=== PATIENT | male | born 1935 | race Caucasian/White ===

== ENCOUNTER 2018-12-23 12:58 | Outpatient (CLI) | payer MEDICARE, BC ==
--- NOTE | 2018-12-23 14:29 | RAD ---
EXAM: CHEST TWO VIEWS: History: Dyspnea. Comparison: 09-28-12 FINDINGS: Mild increased linear and interstitial markings and bilateral pleural thickening. No confluent pneumo leonel, overt edema, or other acute process. IMPRESSION: Mild chronic changes. No acute intrathoracic disease. Atherosclerosis of the aorta. POS: [facility]
== END 2018-12-23 12:59 | disposition home or self-care (01) ==
LOC: RAD 12:58
PROVIDERS: ATTEND Internal Medicine Critical Care Medicine
DX: R06.00 Dyspnea, unspecified (principal); I70.0 Atherosclerosis of aorta
CPT/HCPCS: 71046

== ENCOUNTER 2019-02-28 11:47 | Outpatient (CLI) | payer MEDICARE, BC ==
--- NOTE | 2019-02-28 12:15 | ULT ---
BILATERAL RENAL ULTRASOUND: Date: 02/28/19 HISTORY: UTI. FINDINGS: The right kidney measures 12.7 cm in length and the left kidney measures 12.1 cm in length. No focal mass or hydronephrosis is seen on either side. Cortical echogenicity and thickness is normal. The uri nary bladder is normal. IMPRESSION: Normal exam. POS: [facility]
== END 2019-02-28 11:48 | disposition home or self-care (01) ==
LOC: BICULT 11:47
PROVIDERS: ATTEND Urology
DX: N39.0 Urinary tract infection, site not specified (principal)
CPT/HCPCS: 76770

== ENCOUNTER 2019-04-27 12:27 | Outpatient (CLI) | payer MEDICARE, BC ==
[2019-04-27 14:01] LABS: Bilirubin Negative (Negative); Blood, Urine Negative (Negative); Clarity CLEAR (Clear); Glucose, Urine (Dipstick) Negative (Negative); Leukocyte Negative (Negative); Nitrite Negative (Negative); Protein, Urine (Dipstick) Negative (Neg-Trace); Specific Gravity, Urine 1.017 (1.002-1.036); pH, Urine 5.5 (5.0-9.0)
[2019-04-27 14:03] LABS: Bacteria/HPF None Seen HPF (None Seen); Hemoglobin 13.8 g/dL (14.0-18.0); Hyaline Casts/LPF 0-3 HYALINE CAST LPF (0-3 Hyaline); Mean Corpuscular HGB CONC 34.7 g/dL (32.0-36.0); Mean Corpuscular Hemoglobin 31.6 pg (27.0-31.0); Mean Corpuscular Volume 91.3 fL (78.0-98.0); Mean Platelet Volume 8.8 fL (7.4-10.4); Pathc Cast-AUWi Flag 0.13 (0-2.49); Platelet Count 239 thou/uL (130-400); RBC Distribution Width 12.6 % (11.5-14.5); Red Blood Cell (RBC) Count 4.38 mill/uL (4.70-6.10); Squamous Epithelial None Seen HPF (0-3); WBC/HPF 0-3 HPF (0-3); White Blood Cell (WBC) Count 8.6 thou/uL (4.8-10.8)
[2019-04-27 14:04] LABS: Urine Culture Reflex No No
[2019-04-27 14:07] LABS: INR-International Normal Ratio 1.1; PTT 29.5 SEC (22.9-36.1); Prothrombin Time 14.2 SEC (12.0-14.7)
[2019-04-27 14:27] LABS: Anion Gap 14 mmol/L (10-20); BUN (Urea Nitrogen) 22 mg/dL (8.4-25.7); Calc. Creatinine Clearance 0 mL/min (70-130); Calcium 9.4 mg/dL (7.8-10.44); Carbon Dioxide 24 mmol/L (23-31); Chloride 105 mmol/L (98-107); Estimated GFR-MDRD 71; Glucose 92 mg/dL (83-110); Potassium 4.3 mmol/L (3.5-5.1); Sodium 139 mmol/L (136-145)
--- NOTE | 2019-04-29 21:17 | EKG ---
Test Reason : Blood Pressure : / mmHG Vent. Rate : 067 BPM Atrial Rate : 067 BPM P-R Int : 170 ms QRS Dur : 116 ms QT Int : 430 ms P-R-T Axes : 048 -27 -12 degrees QTc Int : 454 ms Normal sinus rhythm with sinus arrhythmia Left ventricular hypertrophy with QRS widening Abnormal ECG When compared with ECG of 28-SEP-2012 09:57, Premature supraventricular complexes are no longer Present Confirmed by Rudy LOVE ([id number]) on 04/29/2019 9:16:47 PM Referred By: SAWYER Confirmed By:Rudy LOVE
== END 2019-04-27 12:28 | disposition home or self-care (01) ==
LOC: LABBT 12:27
PROVIDERS: ATTEND Urology
DX: Z01.818 Encounter for other preprocedural examination (principal); N40.0 Benign prostatic hyperplasia without lower urinary tract symptoms; N39.41 Urge incontinence
CPT/HCPCS: 80048; 81001; 85027; 85610; 85730; 87086; 93005; 93010

== ENCOUNTER 2019-05-05 06:33 | Observation (INO) | payer MEDICARE, BC ==
[2019-04-27 12:45] VITALS: BMI 34.9
[2019-05-05] MEDS ORDERED: Levofloxacin 500 mg/D5W 100 ml Premix Bag ONE (07:56)
[2019-05-05] MEDS ORDERED: Fentanyl 100 MCG/2 ML VIAL ONE ×2 (09:38→11:32)
[2019-05-05] MEDS ORDERED: Midazolam HCl 2 mg/2 ml Vial ONE (09:38)
[2019-05-05] MEDS ORDERED: B & O ONE (10:58)
[2019-05-05] MEDS ORDERED: Bisacodyl 10 MG SUPP PR PRN (11:07)
[2019-05-05] MEDS ORDERED: hydrALAZINE 20 MG/ML VIAL SLOW IVP PRN (11:07)
[2019-05-05] MEDS ORDERED: Oxybutynin 5 MG TAB PO PRN (11:07)
[2019-05-05] MEDS ORDERED: Ondansetron PF 4 MG/2 ML Vial IVP PRN (11:07)
[2019-05-05] MEDS ORDERED: Mag-Al 1200 mg/1200 mg/30 ML UDCUP PO PRN (11:07)
[2019-05-05] MEDS ORDERED: Phenazopyridine HCl 97.5 MG TABLET PO PRN (11:07)
[2019-05-05] MEDS ORDERED: Hyoscyamine Sulfate SL 0.125 mg Tablet SL PRN (11:07)
[2019-05-05] MEDS ORDERED: Acetaminophen 500 MG TAB PO PRN (11:07)
[2019-05-05] MEDS ORDERED: diphenhydrAMINE 25 MG CAP PO PRN (11:07)
[2019-05-05] MEDS ORDERED: traMADol HCl 50 MG TAB PO PRN (11:10)
[2019-05-05] MEDS ORDERED: Promethazine HCl 25 MG/ML VIAL SLOW IVP PRN (11:17)
[2019-05-05] MEDS ORDERED: Ondansetron HCl/PF 4 MG/2 ML Vial IVP PRN (11:17)
[2019-05-05] MEDS ORDERED: Promethazine HCl 25 MG/ML VIAL IM PRN (11:17)
--- NOTE | 2019-05-05 11:27 | OP ---
DATE OF PROCEDURE: 05/05/2019 SERVICE: Urology. PREOPERATIVE DIAGNOSIS: Benign prostatic hypertrophy. POSTOPERATIVE DIAGNOSIS: Benign prostatic hypertrophy. PROCEDURE PERFORMED: Transurethral vaporization of the prostate. INDICATION FOR PROCEDURE: Mr. Kellogg is an 83-year-old white male, who presented with significant urinary complaints. He is currently on medical therapy, but wishes to come off and be able to urinate better. He has undergone volume studies and cystoscopy, which demonstrates obstruction with a very large prostate. Risks and benefits of surgery were discussed, and he has agreed to proceed forward. DESCRIPTION OF PROCEDURE: After identification of armband and verification of consent, the patient was brought back to the operating room, where he underwent general anesthesia with an LMA. He was then placed in the dorsal lithotomy position and prepped and draped in usual sterile fashion. After appropriate time-out, a 26-Omani resectoscope sheath with visual obturator was placed with ease through the urethra into the bladder. Both ureters were identified very close to the bladder neck, but not excessively close to the point, where there would be a risk injury. The visual obturator was switched out for the wide bipolar plasma button electrode. Vaporization was then carried out initially on the lateral lobes and then at the median lobe. There was no intravesical median lobe, but just hypertrophy of the posterior aspect of the prostate. Circumferential vaporization was carried out from the bladder neck all the way to the verumontanum until we were close to but not through the prostatic capsule. On inspection into the bladder neck, the ureters were identified and a TUIBN was performed with the vaporization electrode to relax the bladder neck and further open up the prostate. Intervening tissue was then vaporized away. Meticulous hemostasis was then performed. Upon completion, the prostatic fossa was wide opened. Everything was dry and there was no apparent bleeding. The ureters were unharmed in orthotopic location. The bladder was irrigated out and then left full, with the resectoscope removed. A 22-Omani three-way Pate catheter was then placed with ease into the bladder and 30 mL of sterile water placed in the balloon. CBI was initiated. The patient was then taken out of lithotomy, awakened, and taken to PACU for recovery in stable condition. B and O suppository was placed in his rectum before awakening. COMPLICATIONS: None. ESTIMATED BLOOD LOSS: Minimal. RETAINED TUBES AND DRAINS: A 22-Omani three-way Pate catheter on continuous bladder irrigation. SPECIMENS: None. DISPOSITION: The patient will be kept in the hospital overnight for monitoring the hematuria. We will then perform a void trial, and he will be discharged home with followup on an outpatient basis. Job ID: [id number]
[2019-05-05] MEDS ORDERED: Morphine 2 MG/ML SYRINGE SLOW IVP PRN (12:51)
[2019-05-05] MEDS ORDERED: Succinylcholine Chloride 20 MG/ML 10 ml SYRINGE FS ONE (16:04)
[2019-05-05] MEDS ORDERED: Rocuronium Bromide 10 MG/ML (10ML VIAL) ONE (16:04)
[2019-05-05] MEDS ORDERED: Dexamethasone 20 MG/5 ML VIAL ONE (16:04)
[2019-05-05] MEDS ORDERED: Ondansetron PF 4 MG/2 ML Vial ONE (16:04)
[2019-05-05] MEDS ORDERED: ePHEDrine 50 MG/ML VIAL ONE (16:04)
[2019-05-05] MEDS ORDERED: Glycopyrrolate 0.2 MG/ML 5 ML SYRINGE ONE (16:04)
[2019-05-05] MEDS ORDERED: PROPOFOL 200 MG/20 ML VIAL ONE (16:04)
[2019-05-05] MEDS ORDERED: Atorvastatin Calcium 40 MG TAB PO SCH (21:00)
[2019-05-05] MEDS: Docusate 100 MG CAP PO SCH (21:06)
[2019-05-06 05:06] LABS: #Eosinphils 0.1 thou/uL (0.0-0.7); #Monocytes 1.2 thou/uL (0.11-0.59); #Neutrophils 9.7 thou/uL (1.40-6.50); %Eosinophils 0.5 % (0.0-10.0); %Lymphocytes 15.3 % (21.0-51.0); %Monocytes 9.1 % (0.0-10.0); Hemoglobin 13.6 g/dL (14.0-18.0); Mean Corpuscular HGB CONC 33.1 g/dL (32.0-36.0); Mean Corpuscular Hemoglobin 30.6 pg (27.0-31.0); Mean Corpuscular Volume 92.5 fL (78.0-98.0); Mean Platelet Volume 8.6 fL (7.4-10.4); Platelet Count 249 thou/uL (130-400); RBC Distribution Width 12.6 % (11.5-14.5); Red Blood Cell (RBC) Count 4.43 mill/uL (4.70-6.10); White Blood Cell (WBC) Count 12.9 thou/uL (4.8-10.8)
[2019-05-06 05:23] LABS: Anion Gap 11 mmol/L (10-20); BUN (Urea Nitrogen) 19 mg/dL (8.4-25.7); Calc. Creatinine Clearance 105 mL/min (70-130); Calcium 9.7 mg/dL (7.8-10.44); Carbon Dioxide 28 mmol/L (23-31); Chloride 104 mmol/L (98-107); Estimated GFR-MDRD 79; Glucose 117 mg/dL (83-110); Potassium 4.3 mmol/L (3.5-5.1); Sodium 139 mmol/L (136-145)
[2019-05-06] MEDS: Docusate 100 MG CAP PO SCH (09:08)
[2019-05-06 09:46] VITALS: TEMP 98.3
[2019-05-06 11:42] VITALS: BP 154/72
--- NOTE | 2019-05-08 13:24 | PRG ---
DATE OF SERVICE: 05/06/2019 SUBJECTIVE: The patient had a good night. No complaints. No bladder spasms, fevers, or issues with his catheter. No chest pain or shortness of breath. OBJECTIVE: VITAL SIGNS: Temperature 98.3, pulse 85, respirations 14, blood pressure 153/69, and saturation 95% on room air. GENERAL: No apparent distress, communicating, and alert. CARDIOVASCULAR: Regular rate and rhythm. ABDOMEN: Soft, nontender, and nondistended. : Pate catheter in place with slightly translucent red urine. No clots. EXTREMITIES: No clubbing, cyanosis, or edema. LABORATORY EVALUATION: The full set of labs are in the [facility] system, which I have reviewed. Of note, white count is 12.9 with hemoglobin of 13.6. Creatinine is 0.92. ASSESSMENT AND PLAN: An 83-year-old white male with BPH, status post transurethral vaporization of the prostate, postop day 1, recovering well. Plan a void trial, and if the patient is able to urinate properly with no difficulty and minimal hematuria, he can go home. I have gone over all the discharge instructions and counseling, and he will follow up with me in 1 to 2 weeks for a postop check. Job ID: [id number]
== END 2019-05-06 14:28 | disposition home or self-care (01) ==
LOC: SDC 06:33 → SJJU 11:53
PROVIDERS: ADMIT Urology; ATTEND Urology
PROC: 0V507ZZ Destruction of Prostate, Via Natural or Artificial Opening (ICD-10-PCS; principal; 2019-05-05)
DX: N40.1 Benign prostatic hyperplasia with lower urinary tract symptoms (principal); N39.41 Urge incontinence; E78.00 Pure hypercholesterolemia, unspecified; I25.10 Atherosclerotic heart disease of native coronary artery without angina pectoris; K21.9 Gastro-esophageal reflux disease without esophagitis; K27.9 Peptic ulcer, site unspecified, unspecified as acute or chronic, without hemorrhage or perforation; G47.33 Obstructive sleep apnea (adult) (pediatric); Z79.01 Long term (current) use of anticoagulants; Z79.82 Long term (current) use of aspirin; Z79.899 Other long term (current) drug therapy; Z87.891 Personal history of nicotine dependence; Z99.89 Dependence on other enabling machines and devices
CPT/HCPCS: 52648; 80048; 85025; 96365; G0378; 36415; J1100; J1956; J2250; J2405; J2704; J3010; J3490; Q0163

== ENCOUNTER 2022-04-04 16:23 | Inpatient (IN) | payer MEDICARE, BC ==
[2022-04-04 16:52] VITALS: BMI 32.6
[2022-04-04] MEDS ORDERED: Acetaminophen 500 MG TAB PO PRN (17:51)
[2022-04-04] MEDS ORDERED: Enoxaparin Sodium 120 MG/0.8 ML SYRINGE SC SCH (18:00)
[2022-04-04] MEDS: Diltiazem HCl 125 MG in Premix Bag 1 BAG IVPB SCH (18:36)
[2022-04-04] MEDS: Atorvastatin Calcium 40 MG TAB PO SCH (19:40)
[2022-04-05 04:57] LABS: #Eosinphils 0.2 thou/uL (0.0-0.7); #Lymphocytes 2.7 thou/uL (1.20-3.40); #Monocytes 1.5 thou/uL (0.11-0.59); #Neutrophils 10.1 thou/uL (1.40-6.50); %Basophils 0.3 % (0.0-1.0); %Eosinophils 1.3 % (0.0-10.0); %Lymphocytes 18.7 % (21.0-51.0); %Monocytes 10.5 % (0.0-10.0); %Neutrophils 69.2 % (42.0-75.0); Hemoglobin 14.3 g/dL (14.0-18.0); Mean Corpuscular HGB CONC 33.6 g/dL (32.0-36.0); Mean Corpuscular Volume 95.2 fL (78.0-98.0); Mean Platelet Volume 8.1 fL (7.4-10.4); Platelet Count 269 thou/uL (130-400); RBC Distribution Width 13.1 % (11.5-14.5); Red Blood Cell (RBC) Count 4.49 mill/uL (4.70-6.10); White Blood Cell (WBC) Count 14.5 thou/uL (4.8-10.8)
[2022-04-05 05:23] LABS: Anion Gap 15 mmol/L (10-20); BUN (Urea Nitrogen) 20 mg/dL (8.4-25.7); Calc. Creatinine Clearance 80 mL/min (70-130); Calcium 8.9 mg/dL (7.8-10.44); Carbon Dioxide 21 mmol/L (23-31); Chloride 101 mmol/L (98-107); Glucose 119 mg/dL (83-110); Potassium 4.3 mmol/L (3.5-5.1); Sodium 133 mmol/L (136-145)
[2022-04-05] MEDS: Diltiazem HCl 125 MG in Premix Bag 1 BAG IVPB SCH ×3 (06:12→18:05)
[2022-04-05] MEDS ORDERED: Albuterol Sulfate 2.5 mg/3 ml Neb NEB PRN (07:49)
[2022-04-05] MEDS: Docusate 100 MG CAP PO SCH ×2 (09:16→19:51)
[2022-04-05] MEDS: Apixaban 5 MG TAB PO SCH ×2 (10:46→19:51)
[2022-04-05] MEDS: Aspirin Chewable 81 MG TAB PO SCH (10:46)
[2022-04-05 13:41] LABS: Bilirubin Negative (Negative); Blood, Urine Negative (Negative); Clarity Clear (Clear); Glucose, Urine (Dipstick) Normal (Negative); Ketone, Urine Negative (Negative); Leukocyte 75 Leu/uL (Negative); Nitrite Negative (Negative); Protein, Urine (Dipstick) Negative (Neg-Trace); RBC/HPF 0-3 HPF (0-3); Specific Gravity, Urine 1.015 (1.002-1.036); Squamous Epithelial None Seen HPF (0-3); Urobilinogen Normal mg/dL (Less than 2)
[2022-04-05 13:49] LABS: Bacteria/HPF None Seen HPF (None Seen); WBC/HPF 0-3 HPF (0-3)
[2022-04-05 13:50] LABS: Urine Culture Reflex Yes Yes
[2022-04-05] MEDS ORDERED: Diltiazem 125 MG in Sodium Chloride 0.9% 100 ML IVPB SCH (18:00)
[2022-04-05] MEDS: Acetaminophen 500 MG TAB PO SCH (19:50)
[2022-04-05] MEDS: diphenhydrAMINE 25 MG CAP PO SCH (19:51)
[2022-04-05] MEDS: Atorvastatin Calcium 40 MG TAB PO SCH (19:51)
[2022-04-06 05:37] LABS: Anion Gap 11 mmol/L (10-20); BUN (Urea Nitrogen) 15 mg/dL (8.4-25.7); Calc. Creatinine Clearance 84 mL/min (70-130); Calcium 8.5 mg/dL (7.8-10.44); Carbon Dioxide 25 mmol/L (23-31); Chloride 102 mmol/L (98-107); Glucose 112 mg/dL (83-110); Potassium 4.3 mmol/L (3.5-5.1); Sodium 134 mmol/L (136-145)
[2022-04-06] MEDS: Dronedarone HCl 400 MG TAB PO SCH ×2 (08:19→17:09)
[2022-04-06] MEDS: Aspirin Chewable 81 MG TAB PO SCH (08:19)
[2022-04-06] MEDS: Apixaban 5 MG TAB PO SCH ×2 (08:19→20:19)
[2022-04-06] MEDS: Docusate 100 MG CAP PO SCH ×2 (08:19→20:20)
[2022-04-06] MEDS ORDERED: Cepastat Lozenges 1 LOZ PO SCH (12:15)
[2022-04-06] MEDS: Cepastat Lozenges 1 LOZ PO PRN ×2 (17:09→20:54)
[2022-04-06] MEDS: guaiFENesin ER 600 MG TAB PO PRN (17:09)
[2022-04-06] MEDS: Acetaminophen 500 MG TAB PO SCH (20:18)
[2022-04-06] MEDS: Atorvastatin Calcium 40 MG TAB PO SCH (20:19)
[2022-04-06] MEDS: diphenhydrAMINE 25 MG CAP PO SCH (20:20)
[2022-04-07] MEDS: Cepastat Lozenges 1 LOZ PO PRN ×2 (03:42→12:35)
[2022-04-07 05:00] LABS: Hemoglobin 13.5 g/dL (14.0-18.0); Mean Corpuscular HGB CONC 33.5 g/dL (32.0-36.0); Mean Corpuscular Hemoglobin 32.1 pg (27.0-31.0); Mean Corpuscular Volume 95.9 fL (78.0-98.0); Mean Platelet Volume 8.1 fL (7.4-10.4); Platelet Count 263 thou/uL (130-400); RBC Distribution Width 13.2 % (11.5-14.5); Red Blood Cell (RBC) Count 4.21 mill/uL (4.70-6.10); White Blood Cell (WBC) Count 7.9 thou/uL (4.8-10.8)
[2022-04-07 05:19] LABS: Anion Gap 11 mmol/L (10-20); BUN (Urea Nitrogen) 16 mg/dL (8.4-25.7); Calc. Creatinine Clearance 88 mL/min (70-130); Calcium 8.4 mg/dL (7.8-10.44); Carbon Dioxide 24 mmol/L (23-31); Chloride 105 mmol/L (98-107); Glucose 115 mg/dL (83-110); Sodium 136 mmol/L (136-145)
[2022-04-07] MEDS: Docusate 100 MG CAP PO SCH ×2 (09:56→19:55)
[2022-04-07] MEDS: Dronedarone HCl 400 MG TAB PO SCH ×2 (09:57→18:24)
[2022-04-07] MEDS: Aspirin Chewable 81 MG TAB PO SCH (09:57)
[2022-04-07] MEDS: Apixaban 5 MG TAB PO SCH ×3 (09:57→19:55)
[2022-04-07] MEDS: guaiFENesin ER 600 MG TAB PO PRN (12:35)
[2022-04-07] MEDS ORDERED: PROPOFOL 20 ML ONE (17:01)
[2022-04-07] MEDS ORDERED: Lidocaine 1% PF 5 ML VIAL ONE ×2 (17:01→17:12)
[2022-04-07] MEDS ORDERED: PROPOFOL 200 MG/20 ML VIAL ONE (17:12)
[2022-04-07] MEDS: diphenhydrAMINE 25 MG CAP PO SCH (19:55)
[2022-04-07] MEDS: Atorvastatin Calcium 40 MG TAB PO SCH (19:56)
[2022-04-07] MEDS: Acetaminophen 500 MG TAB PO SCH (19:56)
[2022-04-08] MEDS: Cepastat Lozenges 1 LOZ PO PRN ×2 (00:12→10:22)
[2022-04-08] MEDS: guaiFENesin ER 600 MG TAB PO PRN (00:12)
[2022-04-08 08:45] VITALS: BP 156/69; TEMP 98
[2022-04-08] MEDS: Docusate 100 MG CAP PO SCH (08:53)
[2022-04-08] MEDS: Aspirin Chewable 81 MG TAB PO SCH (08:53)
[2022-04-08] MEDS: Apixaban 5 MG TAB PO SCH (08:53)
[2022-04-08] MEDS: Dronedarone HCl 400 MG TAB PO SCH (08:53)
[2022-04-08] MEDS ORDERED: Doxycycline 100 MG CAP PO SCH (09:00)
== END 2022-04-08 11:47 | disposition home or self-care (01) | DRG 309 ==
LOC: 2SW 16:23
PROVIDERS: ADMIT Internal Medicine; ATTEND Internal Medicine
PROC: B24BZZ4 Ultrasonography of Heart with Aorta, Transesophageal (ICD-10-PCS; principal; 2022-04-08)
PROC: 5A2204Z Restoration of Cardiac Rhythm, Single (ICD-10-PCS; 2022-04-08)
DX: I48.92 Unspecified atrial flutter (principal); N13.8 Other obstructive and reflux uropathy; I48.0 Paroxysmal atrial fibrillation; I10 Essential (primary) hypertension; J40 Bronchitis, not specified as acute or chronic; M19.90 Unspecified osteoarthritis, unspecified site; K21.9 Gastro-esophageal reflux disease without esophagitis; E66.09 Other obesity due to excess calories; N40.1 Benign prostatic hyperplasia with lower urinary tract symptoms; E78.5 Hyperlipidemia, unspecified; G47.33 Obstructive sleep apnea (adult) (pediatric); E78.00 Pure hypercholesterolemia, unspecified; I08.3 Combined rheumatic disorders of mitral, aortic and tricuspid valves; I25.10 Atherosclerotic heart disease of native coronary artery without angina pectoris; I49.9 Cardiac arrhythmia, unspecified; Z96.649 Presence of unspecified artificial hip joint; Z96.659 Presence of unspecified artificial knee joint; Z79.899 Other long term (current) drug therapy; Z79.82 Long term (current) use of aspirin; Z68.33 Body mass index [BMI] 33.0-33.9, adult; Z79.01 Long term (current) use of anticoagulants; Z79.2 Long term (current) use of antibiotics; Z83.3 Family history of diabetes mellitus; Z82.49 Family history of ischemic heart disease and other diseases of the circulatory system
CPT/HCPCS: 36415; 80048; 81001; 84145; 84443; 85025; 85027; 87086; 92960; 93005; 93010; 93306; 94760; J1650; J1956; J2704

== ENCOUNTER 2022-07-18 10:38 | Inpatient (IN) | payer MEDICARE, BC ==
[2022-07-18 14:52] VITALS: BMI 34.7
[2022-07-18] MEDS ORDERED: Acetaminophen 325 MG TAB PO PRN (15:49)
[2022-07-18] MEDS ORDERED: Acetaminophen 650 MG Suppository PR PRN (15:49)
[2022-07-18] MEDS ORDERED: Ondansetron PF 4 MG/2 ML Vial IVP PRN (15:49)
[2022-07-18] MEDS ORDERED: Ondansetron ODT 4 MG TAB PO PRN (15:49)
[2022-07-18] MEDS ORDERED: Diltiazem HCl 125 MG in Premix Bag 1 BAG IVPB SCH (16:45)
[2022-07-18] MEDS ORDERED: Furosemide 40 MG/4 ML VIAL SLOW IVP SCH (17:00)
[2022-07-18] MEDS ORDERED: Albuterol Sulfate 2.5 mg/3 ml Neb NEB PRN (17:03)
[2022-07-18] MEDS: Dronedarone HCl 400 MG TAB PO SCH (17:34)
[2022-07-18] MEDS ORDERED: Diltiazem HCl SR 60 mg Capsule PO SCH (18:00)
[2022-07-18 18:14] LABS: Magnesium 1.8 mg/dL (1.6-2.6)
[2022-07-18] MEDS: Atorvastatin Calcium 40 MG TAB PO SCH (20:48)
[2022-07-18] MEDS: Enoxaparin Sodium 120 MG/0.8 ML SYRINGE SC SCH (20:49)
[2022-07-18] MEDS: guaiFENesin/Codeine 200 mg/20 mg 10 ml Cup PO PRN (20:49)
[2022-07-18] MEDS: Docusate 100 MG CAP PO SCH (20:49)
[2022-07-19] MEDS: guaiFENesin/Codeine 200 mg/20 mg 10 ml Cup PO PRN ×2 (02:26→12:45)
[2022-07-19 04:49] LABS: #Eosinphils 0.1 thou/uL (0.0-0.7); #Lymphocytes 1.2 thou/uL (1.20-3.40); #Monocytes 0.8 thou/uL (0.11-0.59); #Neutrophils 4.7 thou/uL (1.40-6.50); %Basophils 0.1 % (0.0-1.0); %Eosinophils 1.8 % (0.0-10.0); %Lymphocytes 17.4 % (21.0-51.0); %Monocytes 11.2 % (0.0-10.0); %Neutrophils 69.6 % (42.0-75.0); Hemoglobin 12.7 g/dL (14.0-18.0); Mean Corpuscular HGB CONC 34.8 g/dL (32.0-36.0); Mean Corpuscular Volume 94.9 fL (78.0-98.0); Mean Platelet Volume 8.4 fL (7.4-10.4); Platelet Count 185 thou/uL (130-400); RBC Distribution Width 13.1 % (11.5-14.5); Red Blood Cell (RBC) Count 3.83 mill/uL (4.70-6.10); White Blood Cell (WBC) Count 6.8 thou/uL (4.8-10.8)
[2022-07-19 05:10] LABS: Anion Gap 14 mmol/L (10-20); BUN (Urea Nitrogen) 14 mg/dL (8.4-25.7); Calc. Creatinine Clearance 84 mL/min (70-130); Calcium 8.4 mg/dL (7.8-10.44); Carbon Dioxide 24 mmol/L (23-31); Chloride 99 mmol/L (98-107); Estimated GFR 65; Glucose 110 mg/dL (83-110); Potassium 3.8 mmol/L (3.5-5.1); Sodium 133 mmol/L (136-145)
[2022-07-19] MEDS: Benzonatate 100 MG CAP PO PRN ×2 (05:14→20:57)
[2022-07-19] MEDS ORDERED: Albuterol 200 PUFF (6.7GM INHALER) INH PRN (05:27)
[2022-07-19] MEDS ORDERED: Magnesium 2 GM/50 ML(in water) 2 GM in Premix Bag 1 BAG IVPB SCH (08:30)
[2022-07-19] MEDS: Docusate 100 MG CAP PO SCH ×2 (09:50→20:56)
[2022-07-19] MEDS: Dronedarone HCl 400 MG TAB PO SCH (09:50)
[2022-07-19] MEDS: Enoxaparin Sodium 120 MG/0.8 ML SYRINGE SC SCH (09:50)
[2022-07-19] MEDS: Cepastat Lozenges 1 LOZ PO PRN (15:02)
[2022-07-19] MEDS: Apixaban 5 MG TAB PO SCH (20:56)
[2022-07-19] MEDS: Atorvastatin Calcium 40 MG TAB PO SCH (20:56)
[2022-07-20] MEDS: guaiFENesin/Codeine 200 mg/20 mg 10 ml Cup PO PRN ×3 (03:10→21:17)
[2022-07-20 04:38] LABS: #Eosinphils 0.2 thou/uL (0.0-0.7); #Lymphocytes 1.1 thou/uL (1.20-3.40); #Monocytes 0.7 thou/uL (0.11-0.59); #Neutrophils 3.4 thou/uL (1.40-6.50); %Basophils 0.4 % (0.0-1.0); %Eosinophils 3.2 % (0.0-10.0); %Lymphocytes 20.6 % (21.0-51.0); %Monocytes 12.7 % (0.0-10.0); %Neutrophils 63.1 % (42.0-75.0); Hemoglobin 13.4 g/dL (14.0-18.0); Mean Corpuscular HGB CONC 34.2 g/dL (32.0-36.0); Mean Corpuscular Hemoglobin 32.5 pg (27.0-31.0); Mean Corpuscular Volume 95.3 fL (78.0-98.0); Mean Platelet Volume 8.6 fL (7.4-10.4); Platelet Count 192 thou/uL (130-400); RBC Distribution Width 13.1 % (11.5-14.5); Red Blood Cell (RBC) Count 4.12 mill/uL (4.70-6.10); White Blood Cell (WBC) Count 5.5 thou/uL (4.8-10.8)
[2022-07-20 05:00] LABS: Anion Gap 15 mmol/L (10-20); BUN (Urea Nitrogen) 12 mg/dL (8.4-25.7); Calc. Creatinine Clearance 96 mL/min (70-130); Calcium 8.3 mg/dL (7.8-10.44); Carbon Dioxide 23 mmol/L (23-31); Chloride 102 mmol/L (98-107); Estimated GFR 76; Glucose 128 mg/dL (83-110); Sodium 136 mmol/L (136-145)
[2022-07-20] MEDS: Docusate 100 MG CAP PO SCH ×2 (09:44→21:17)
[2022-07-20] MEDS: Apixaban 5 MG TAB PO SCH ×2 (09:45→21:17)
[2022-07-20] MEDS: Benzonatate 100 MG CAP PO PRN (10:56)
[2022-07-20] MEDS: Atorvastatin Calcium 40 MG TAB PO SCH (21:17)
[2022-07-21 04:57] LABS: #Eosinphils 0.2 thou/uL (0.0-0.7); #Lymphocytes 1.9 thou/uL (1.20-3.40); #Monocytes 0.7 thou/uL (0.11-0.59); #Neutrophils 3.4 thou/uL (1.40-6.50); %Eosinophils 3.7 % (0.0-10.0); %Lymphocytes 30.5 % (21.0-51.0); %Monocytes 10.9 % (0.0-10.0); %Neutrophils 54.9 % (42.0-75.0); Hemoglobin 13.5 g/dL (14.0-18.0); Mean Corpuscular HGB CONC 33.8 g/dL (32.0-36.0); Mean Corpuscular Hemoglobin 32.5 pg (27.0-31.0); Mean Corpuscular Volume 96.1 fL (78.0-98.0); Platelet Count 213 thou/uL (130-400); Red Blood Cell (RBC) Count 4.16 mill/uL (4.70-6.10); White Blood Cell (WBC) Count 6.3 thou/uL (4.8-10.8)
[2022-07-21 05:15] LABS: Anion Gap 12 mmol/L (10-20); BUN (Urea Nitrogen) 13 mg/dL (8.4-25.7); Calc. Creatinine Clearance 94 mL/min (70-130); Calcium 8.6 mg/dL (7.8-10.44); Carbon Dioxide 25 mmol/L (23-31); Chloride 102 mmol/L (98-107); Estimated GFR 74; Glucose 113 mg/dL (83-110); Potassium 4.2 mmol/L (3.5-5.1); Sodium 135 mmol/L (136-145)
[2022-07-21] MEDS: guaiFENesin/Codeine 200 mg/20 mg 10 ml Cup PO PRN (08:29)
[2022-07-21] MEDS: Apixaban 5 MG TAB PO SCH ×2 (08:29→22:01)
[2022-07-21] MEDS: Docusate 100 MG CAP PO SCH ×2 (08:29→22:01)
[2022-07-21] MEDS: Cepastat Lozenges 1 LOZ PO PRN (09:45)
[2022-07-21] MEDS ORDERED: guaiFENesin ER 600 MG TAB PO SCH (13:45)
[2022-07-21] MEDS: Atorvastatin Calcium 40 MG TAB PO SCH (22:00)
[2022-07-21] MEDS: guaiFENesin ER 600 MG TAB PO SCH (22:01)
[2022-07-22 04:49] LABS: #Eosinphils 0.2 thou/uL (0.0-0.7); #Lymphocytes 1.9 thou/uL (1.20-3.40); #Monocytes 0.7 thou/uL (0.11-0.59); %Basophils 0.2 % (0.0-1.0); %Eosinophils 3.4 % (0.0-10.0); %Lymphocytes 27.3 % (21.0-51.0); %Neutrophils 59.2 % (42.0-75.0); Hemoglobin 13.3 g/dL (14.0-18.0); Mean Corpuscular HGB CONC 34.3 g/dL (32.0-36.0); Mean Corpuscular Hemoglobin 32.7 pg (27.0-31.0); Mean Corpuscular Volume 95.4 fL (78.0-98.0); Mean Platelet Volume 8.4 fL (7.4-10.4); Platelet Count 234 thou/uL (130-400); Red Blood Cell (RBC) Count 4.07 mill/uL (4.70-6.10); White Blood Cell (WBC) Count 6.8 thou/uL (4.8-10.8)
[2022-07-22 05:09] LABS: Anion Gap 13 mmol/L (10-20); BUN (Urea Nitrogen) 14 mg/dL (8.4-25.7); Calc. Creatinine Clearance 94 mL/min (70-130); Calcium 8.4 mg/dL (7.8-10.44); Carbon Dioxide 24 mmol/L (23-31); Chloride 104 mmol/L (98-107); Estimated GFR 74; Glucose 114 mg/dL (83-110); Potassium 4.1 mmol/L (3.5-5.1); Sodium 137 mmol/L (136-145)
[2022-07-22] MEDS: Aspirin Chewable 81 MG TAB PO SCH (09:14)
[2022-07-22] MEDS: Docusate 100 MG CAP PO SCH ×2 (09:14→21:30)
[2022-07-22] MEDS: Furosemide 20 MG TAB PO SCH (09:14)
[2022-07-22] MEDS: Apixaban 5 MG TAB PO SCH ×2 (09:14→21:30)
[2022-07-22] MEDS: guaiFENesin ER 600 MG TAB PO SCH ×2 (09:14→21:30)
[2022-07-22] MEDS: Cepastat Lozenges 1 LOZ PO PRN (11:12)
[2022-07-22] MEDS: Dronedarone HCl 400 MG TAB PO SCH (16:43)
[2022-07-22] MEDS: Atorvastatin Calcium 40 MG TAB PO SCH (21:30)
[2022-07-23 04:48] LABS: #Eosinphils 0.3 thou/uL (0.0-0.7); #Lymphocytes 2.3 thou/uL (1.20-3.40); #Monocytes 0.6 thou/uL (0.11-0.59); %Basophils 0.4 % (0.0-1.0); %Eosinophils 3.6 % (0.0-10.0); %Lymphocytes 31.8 % (21.0-51.0); %Neutrophils 56.2 % (42.0-75.0); Hemoglobin 13.3 g/dL (14.0-18.0); Mean Corpuscular HGB CONC 34.7 g/dL (32.0-36.0); Mean Corpuscular Hemoglobin 33.4 pg (27.0-31.0); Mean Corpuscular Volume 96.4 fL (78.0-98.0); Mean Platelet Volume 8.5 fL (7.4-10.4); Platelet Count 233 thou/uL (130-400); Red Blood Cell (RBC) Count 3.97 mill/uL (4.70-6.10); White Blood Cell (WBC) Count 7.2 thou/uL (4.8-10.8)
[2022-07-23 05:16] LABS: Anion Gap 11 mmol/L (10-20); BUN (Urea Nitrogen) 15 mg/dL (8.4-25.7); Calc. Creatinine Clearance 74 mL/min (70-130); Calcium 8.6 mg/dL (7.8-10.44); Carbon Dioxide 28 mmol/L (23-31); Chloride 102 mmol/L (98-107); Estimated GFR 56; Glucose 109 mg/dL (83-110); Potassium 4.1 mmol/L (3.5-5.1); Sodium 137 mmol/L (136-145)
[2022-07-23] MEDS: Apixaban 5 MG TAB PO SCH (08:44)
[2022-07-23] MEDS: guaiFENesin ER 600 MG TAB PO SCH (08:44)
[2022-07-23] MEDS: Dronedarone HCl 400 MG TAB PO SCH (08:44)
[2022-07-23] MEDS: Aspirin Chewable 81 MG TAB PO SCH (08:44)
[2022-07-23] MEDS: Furosemide 20 MG TAB PO SCH (08:44)
[2022-07-23] MEDS: Docusate 100 MG CAP PO SCH (08:44)
[2022-07-23 13:20] VITALS: BP 131/64; TEMP 97.8
== END 2022-07-23 14:20 | disposition home or self-care (01) | DRG 308 ==
LOC: 2NO 10:38 → OBSVTOIN 15:49
PROVIDERS: ADMIT Family Medicine; ATTEND Family Medicine
PROC: 5A09357 Assistance with Respiratory Ventilation, Less than 24 Consecutive Hours, Continuous Positive Airway Pressure (ICD-10-PCS; principal; 2022-07-18)
DX: I48.0 Paroxysmal atrial fibrillation (principal); U07.1 COVID-19; K21.9 Gastro-esophageal reflux disease without esophagitis; N40.0 Benign prostatic hyperplasia without lower urinary tract symptoms; Z96.659 Presence of unspecified artificial knee joint; Z96.649 Presence of unspecified artificial hip joint; E78.5 Hyperlipidemia, unspecified; I10 Essential (primary) hypertension; I48.19 Other persistent atrial fibrillation; E66.01 Morbid (severe) obesity due to excess calories; G47.33 Obstructive sleep apnea (adult) (pediatric); I48.92 Unspecified atrial flutter; I35.1 Nonrheumatic aortic (valve) insufficiency; Z98.890 Other specified postprocedural states; Z79.01 Long term (current) use of anticoagulants; Z79.82 Long term (current) use of aspirin; Z79.899 Other long term (current) drug therapy; Z68.34 Body mass index [BMI] 34.0-34.9, adult
CPT/HCPCS: 36415; 36416; 71045; 80048; 83735; 85025; 93005; 93010; 93306; J1650; J1940; J3475; U0003; U0005

== ENCOUNTER 2022-08-05 09:46 | Outpatient (CLI) | payer MEDICARE, BC | END 2022-08-05 09:47 | disposition home or self-care (01) | LOC: LABBT 09:46 | PROVIDERS: ATTEND Internal Medicine Cardiovascular Disease | DX: Z01.810 Encounter for preprocedural cardiovascular examination (principal) | CPT/HCPCS: 93005; 93010 ==

== ENCOUNTER 2022-11-19 12:23 | Outpatient (CLI) | payer MEDICARE, BC ==
[2022-11-19 15:06] LABS: Hemoglobin 14.7 g/dL (13.5-17.5); Mean Corpuscular HGB CONC 35.5 g/dL (32.0-36.0); Mean Corpuscular Hemoglobin 32.1 pg (27.0-33.0); Mean Corpuscular Volume 90.4 fl (81.2-95.1); Mean Platelet Volume 11.7 fl (7.4-10.4); Platelet Count 272 10x3/uL (150-450); RBC Distribution Width 13.3 % (11.5-14.5); Red Blood Cell (RBC) Count 4.58 10x6/uL (4.32-5.72); White Blood Cell (WBC) Count 9.5 10x3/uL (3.5-10.5)
[2022-11-19 15:10] LABS: Anion Gap 17 mmol/L (10-20); BUN (Urea Nitrogen) 26 mg/dL (8.4-25.7); Calc. Creatinine Clearance 0 mL/min (70-130); Calcium 9.3 mg/dL (7.8-10.44); Carbon Dioxide 22 mmol/L (23-31); Chloride 104 mmol/L (98-107); Estimated GFR 59; Glucose 91 mg/dL (83-110); Sodium 138 mmol/L (136-145)
[2022-11-19 15:23] LABS: PTT 27.6 sec (22.0-33.0); Prothrombin Time 10.8 sec (9.5-12.1)
== END 2022-11-19 12:24 | disposition home or self-care (01) ==
LOC: LABBT 12:23
PROVIDERS: ATTEND Internal Medicine Cardiovascular Disease
DX: Z01.812 Encounter for preprocedural laboratory examination (principal); I48.91 Unspecified atrial fibrillation
CPT/HCPCS: 80048; 85027; 85610; 85730

== ENCOUNTER 2022-11-24 05:43 | Day surgery (SDC) | payer MEDICARE, BC ==
[2022-11-20 11:09] VITALS: BMI 33.3
[2022-11-24] MEDS ORDERED: Protamine Sulfate 50 MG/5 ML VIAL ONE (06:35)
[2022-11-24] MEDS ORDERED: Isoproterenol 0.2 MG/1 ML AMP ONE (06:35)
[2022-11-24] MEDS ORDERED: Heparin 25,000 units/D5W 500 ML ONE (06:35)
[2022-11-24] MEDS ORDERED: Heparin 10,000 UNITS/ 10 ML VIAL ONE (06:35)
[2022-11-24] MEDS ORDERED: HYDROmorphone 0.5 MG/0.5 ML SYRINGE ONE (06:57)
[2022-11-24] MEDS ORDERED: Lidocaine 1% PF 5 ML VIAL ONE (07:47)
[2022-11-24] MEDS ORDERED: Rocuronium Bromide 10 MG/ML (10ML VIAL) ONE (07:47)
[2022-11-24] MEDS ORDERED: Ondansetron PF 4 MG/2 ML Vial ONE (07:47)
[2022-11-24] MEDS ORDERED: PROPOFOL 200 MG/20 ML VIAL ONE (07:47)
[2022-11-24] MEDS ORDERED: PHENYLEPHRINE-NS 100 MCG/ML 10 ML SYRINGE ONE (07:47)
[2022-11-24] MEDS ORDERED: Dexamethasone 20 MG/5 ML VIAL ONE (07:47)
[2022-11-24] MEDS ORDERED: Phenylephrine 10 MG/ML VIAL ONE (07:55)
[2022-11-24] MEDS ORDERED: SUGAMMADEX SODIUM 200 MG/2 ML VIAL ONE (11:21)
[2022-11-24] MEDS ORDERED: Furosemide 40 MG TAB PO PRN (11:27)
[2022-11-24] MEDS ORDERED: Potassium Chloride 20 MEQ TAB PO PRN (11:27)
[2022-11-24] MEDS ORDERED: Ketorolac Tromethamine 30 MG/ML VIAL IVP PRN (11:28)
[2022-11-24] MEDS ORDERED: Sucralfate 1 GM TAB PO SCH (11:30)
== END 2022-11-24 16:45 | disposition home or self-care (01) ==
LOC: SDC 05:43
PROVIDERS: ATTEND Internal Medicine Cardiovascular Disease
PROC: B244ZZ3 Ultrasonography of Right Heart, Intravascular (ICD-10-PCS; principal; 2022-11-24)
PROC: 02583ZZ Destruction of Conduction Mechanism, Percutaneous Approach (ICD-10-PCS; 2022-11-24)
PROC: 02K83ZZ Map Conduction Mechanism, Percutaneous Approach (ICD-10-PCS; 2022-11-24)
PROC: 4A023FZ Measurement of Cardiac Rhythm, Percutaneous Approach (ICD-10-PCS; 2022-11-24)
PROC: 4A0234Z Measurement of Cardiac Electrical Activity, Percutaneous Approach (ICD-10-PCS; 2022-11-24)
DX: I48.19 Other persistent atrial fibrillation (principal); I11.9 Hypertensive heart disease without heart failure; I48.3 Typical atrial flutter; I25.10 Atherosclerotic heart disease of native coronary artery without angina pectoris; E78.5 Hyperlipidemia, unspecified; G47.30 Sleep apnea, unspecified; N40.0 Benign prostatic hyperplasia without lower urinary tract symptoms; K21.9 Gastro-esophageal reflux disease without esophagitis; Z86.73 Personal history of transient ischemic attack (TIA), and cerebral infarction without residual deficits; Z79.01 Long term (current) use of anticoagulants; Z79.899 Other long term (current) drug therapy
CPT/HCPCS: 85347 ×2; 93005; 93623; 93655; 93656; C1732; C1759; C1760; C1884; C1894 ×2; 93657; J1100; J1170; J1644; J2370; J2405; J2704; J2720

== ENCOUNTER 2022-12-12 09:27 | Day surgery (SDC) | payer MEDICARE, BC ==
[2022-12-11 14:40] VITALS: BMI 33.3
[2022-12-12] MEDS ORDERED: PROPOFOL 20 ML ONE (12:39)
== END 2022-12-12 14:14 | disposition home or self-care (01) ==
LOC: SDC 09:27
PROVIDERS: ATTEND Internal Medicine Cardiovascular Disease
PROC: 5A2204Z Restoration of Cardiac Rhythm, Single (ICD-10-PCS; principal; 2022-12-12)
DX: I48.19 Other persistent atrial fibrillation (principal); I48.3 Typical atrial flutter; N40.0 Benign prostatic hyperplasia without lower urinary tract symptoms; I25.10 Atherosclerotic heart disease of native coronary artery without angina pectoris; K21.9 Gastro-esophageal reflux disease without esophagitis; E78.5 Hyperlipidemia, unspecified; I10 Essential (primary) hypertension; G47.30 Sleep apnea, unspecified; Z86.73 Personal history of transient ischemic attack (TIA), and cerebral infarction without residual deficits; Z79.01 Long term (current) use of anticoagulants; Z79.899 Other long term (current) drug therapy
CPT/HCPCS: 92960; 93005; 93010; J2704

== ENCOUNTER 2023-03-19 11:30 | Outpatient (CLI) | payer MEDICARE, BC ==
[2023-03-19 13:45] LABS: Anion Gap 15 mmol/L (10-20); BUN (Urea Nitrogen) 20 mg/dL (8.4-25.7); Calc. Creatinine Clearance 0 mL/min (70-130); Calcium 9.1 mg/dL (7.8-10.44); Carbon Dioxide 24 mmol/L (23-31); Chloride 102 mmol/L (98-107); Estimated GFR 58; Glucose 88 mg/dL (83-110); Sodium 136 mmol/L (136-145)
== END 2023-03-19 11:31 | disposition home or self-care (01) ==
LOC: LABBT 11:30
PROVIDERS: ATTEND Internal Medicine Cardiovascular Disease
DX: Z01.812 Encounter for preprocedural laboratory examination (principal); I48.91 Unspecified atrial fibrillation; I48.92 Unspecified atrial flutter
CPT/HCPCS: 80048

== ENCOUNTER 2023-03-23 05:59 | Day surgery (SDC) | payer MEDICARE, BC ==
[2023-03-19 12:10] VITALS: BMI 33.3
== END 2023-03-23 09:05 | disposition home or self-care (01) ==
LOC: SDC 05:59
PROVIDERS: ATTEND Internal Medicine Cardiovascular Disease
DX: I48.92 Unspecified atrial flutter (principal); R00.1 Bradycardia, unspecified; I25.10 Atherosclerotic heart disease of native coronary artery without angina pectoris; G47.30 Sleep apnea, unspecified; E78.5 Hyperlipidemia, unspecified; Z53.8 Procedure and treatment not carried out for other reasons; Z79.01 Long term (current) use of anticoagulants; Z79.899 Other long term (current) drug therapy
CPT/HCPCS: 93005; 93010

== ENCOUNTER 2023-07-12 11:28 | Inpatient (IN) | payer MEDICARE, BC ==
[2023-07-12] MEDS ORDERED: Morphine 4 MG/ML VIAL ONE (11:59)
[2023-07-12] MEDS ORDERED: Ondansetron PF 4 MG/2 ML Vial ONE (11:59)
[2023-07-12 12:01] LABS: #Monocytes 1.2 thou/uL (0.11-0.59); #Neutrophils 9.4 thou/uL (1.40-6.50); %Basophils 0.2 % (0.0-1.0); %Eosinophils 0.2 % (0.0-10.0); %Lymphocytes 13.3 % (21.0-51.0); %Monocytes 9.6 % (0.0-10.0); %Neutrophils 76.4 % (42.0-75.0); Hematocrit 37.3 % (42.0-52.0); Mean Corpuscular HGB CONC 34.9 g/dL (32.0-36.0); Mean Corpuscular Hemoglobin 32.4 pg (27.0-31.0); Mean Platelet Volume 10.6 fL (7.4-10.4); Platelet Count 200 10x3/uL (130-400); RBC Distribution Width 13.7 % (11.5-14.5); Red Blood Cell (RBC) Count 4.01 mill/uL (4.70-6.10); White Blood Cell (WBC) Count 12.3 10x3/uL (4.8-10.8)
[2023-07-12] MEDS ORDERED: Piperacillin/Tazobactam 4.5 GM VIAL ONE (12:17)
[2023-07-12 12:29] LABS: ALT (SGPT) 20 U/L (8-55); AST (SGOT) 17 U/L (5-34); Albumin 3.6 g/dL (3.4-4.8); Alkaline Phosphatase 92 U/L (40-110); Anion Gap 14 mmol/L (10-20); BUN (Urea Nitrogen) 18 mg/dL (8.4-25.7); Bilirubin, Total 1.5 mg/dL (0.2-1.2); Calc. Creatinine Clearance 0 mL/min (70-130); Calcium 8.9 mg/dL (7.8-10.44); Carbon Dioxide 25 mmol/L (23-31); Chloride 99 mmol/L (98-107); Estimated GFR 46; Glucose 130 mg/dL (83-110); Potassium 4.2 mmol/L (3.5-5.1); Protein, Total 6.6 g/dL (5.8-8.1); Sodium 134 mmol/L (136-145)
[2023-07-12] MEDS ORDERED: Calcium Carbonate 500 MG ChewTAB PO PRN (12:58)
[2023-07-12] MEDS ORDERED: Ondansetron ODT 4 MG TAB PO PRN (12:58)
[2023-07-12] MEDS ORDERED: Acetaminophen 325 MG TAB PO PRN (12:58)
[2023-07-12] MEDS ORDERED: Morphine 2 MG/ML VIAL SLOW IVP PRN (13:02)
[2023-07-12 14:07] VITALS: BMI 33.9
[2023-07-12] MEDS: Dextrose 5%-Lactated Ringers 1,000 ML IV SCH (15:11)
[2023-07-12] MEDS ORDERED: Piperacillin/Tazobactam 3.375 GM in Sodium Chloride 0.9% 100 ML IVPB SCH (16:00)
[2023-07-12] MEDS: Apixaban 5 MG TAB PO SCH (20:59)
[2023-07-12] MEDS: Metoprolol Tartrate 50 MG TAB PO SCH (20:59)
[2023-07-12] MEDS: Atorvastatin Calcium 40 MG TAB PO SCH (20:59)
[2023-07-12] MEDS ORDERED: Famotidine 20 MG TAB PO SCH (21:00)
[2023-07-12] MEDS: metroNIDAZOLE 500 MG in Premix Bag 1 BAG IVPB SCH (21:02)
[2023-07-13] MEDS: Dextrose 5%-Lactated Ringers 1,000 ML IV SCH (05:13)
[2023-07-13] MEDS: metroNIDAZOLE 500 MG in Premix Bag 1 BAG IVPB SCH ×3 (05:13→21:41)
[2023-07-13 06:26] LABS: #Eosinphils 0.2 thou/uL (0.0-0.7); #Monocytes 0.8 thou/uL (0.11-0.59); %Basophils 0.3 % (0.0-1.0); %Eosinophils 2.3 % (0.0-10.0); %Lymphocytes 17.1 % (21.0-51.0); %Monocytes 11.3 % (0.0-10.0); %Neutrophils 68.6 % (42.0-75.0); Hematocrit 33.6 % (42.0-52.0); Hemoglobin 11.4 g/dL (14.0-18.0); Mean Corpuscular HGB CONC 33.9 g/dL (32.0-36.0); Mean Corpuscular Hemoglobin 32.6 pg (27.0-31.0); Mean Platelet Volume 10.6 fL (7.4-10.4); Platelet Count 164 10x3/uL (130-400); White Blood Cell (WBC) Count 7.3 10x3/uL (4.8-10.8)
[2023-07-13 06:58] LABS: Anion Gap 7 mmol/L (10-20); BUN (Urea Nitrogen) 13 mg/dL (8.4-25.7); Calc. Creatinine Clearance 84 mL/min (70-130); Calcium 8.4 mg/dL (7.8-10.44); Carbon Dioxide 26 mmol/L (23-31); Chloride 103 mmol/L (98-107); Estimated GFR 68; Glucose 102 mg/dL (83-110); Sodium 132 mmol/L (136-145)
[2023-07-13] MEDS: Apixaban 5 MG TAB PO SCH (08:57)
[2023-07-13] MEDS: Metoprolol Tartrate 50 MG TAB PO SCH ×2 (08:57→21:27)
[2023-07-13] MEDS: Amiodarone 200 MG TAB PO SCH ×2 (10:17→21:27)
[2023-07-13] MEDS: Senokot S 8.6-50 MG TAB PO PRN (14:43)
[2023-07-13] MEDS: LevoFLOXacin 750 mg/D5W 750 MG in Premix Bag 1 BAG IVPB SCH (17:17)
[2023-07-13] MEDS: Atorvastatin Calcium 40 MG TAB PO SCH (21:27)
[2023-07-14] MEDS: metroNIDAZOLE 500 MG in Premix Bag 1 BAG IVPB SCH ×3 (06:00→21:42)
[2023-07-14] MEDS: Pantoprazole 40 MG VIAL IVP SCH (07:56)
[2023-07-14] MEDS: Enoxaparin 120 MG/0.8 ML SYRINGE SC SCH ×2 (09:11→20:16)
[2023-07-14] MEDS: Amiodarone 200 MG TAB PO SCH ×2 (09:11→20:16)
[2023-07-14] MEDS: Metoprolol Tartrate 50 MG TAB PO SCH ×2 (09:11→20:16)
[2023-07-14] MEDS ORDERED: Sodium Chloride 0.9% 1,000 ML IV SCH (09:15)
[2023-07-14] MEDS: Sodium Chloride 0.9% 1,000 ML IV SCH (15:43)
[2023-07-14] MEDS: LevoFLOXacin 750 mg/D5W 750 MG in Premix Bag 1 BAG IVPB SCH (17:44)
[2023-07-14] MEDS: Senokot S 8.6-50 MG TAB PO PRN (17:47)
[2023-07-14] MEDS: Atorvastatin Calcium 40 MG TAB PO SCH (20:16)
[2023-07-15] MEDS: Sodium Chloride 0.9% 1,000 ML IV SCH (01:23)
[2023-07-15] MEDS: metroNIDAZOLE 500 MG in Premix Bag 1 BAG IVPB SCH (05:04)
[2023-07-15 07:38] LABS: #Eosinphils 0.2 thou/uL (0.0-0.7); #Monocytes 0.7 thou/uL (0.11-0.59); #Neutrophils 3.3 thou/uL (1.40-6.50); %Basophils 0.4 % (0.0-1.0); %Eosinophils 3.2 % (0.0-10.0); %Lymphocytes 24.5 % (21.0-51.0); %Monocytes 12.8 % (0.0-10.0); %Neutrophils 58.2 % (42.0-75.0); Hematocrit 35.9 % (42.0-52.0); Hemoglobin 12.1 g/dL (14.0-18.0); Mean Corpuscular HGB CONC 33.7 g/dL (32.0-36.0); Mean Corpuscular Hemoglobin 32.2 pg (27.0-31.0); Mean Corpuscular Volume 95.5 fl (78.0-98.0); Mean Platelet Volume 10.3 fL (7.4-10.4); Platelet Count 229 10x3/uL (130-400); RBC Distribution Width 13.5 % (11.5-14.5); Red Blood Cell (RBC) Count 3.76 mill/uL (4.70-6.10); White Blood Cell (WBC) Count 5.6 10x3/uL (4.8-10.8)
[2023-07-15 08:04] LABS: Anion Gap 10 mmol/L (10-20); BUN (Urea Nitrogen) 10 mg/dL (8.4-25.7); Calc. Creatinine Clearance 92 mL/min (70-130); Calcium 8.3 mg/dL (7.8-10.44); Carbon Dioxide 23 mmol/L (23-31); Chloride 104 mmol/L (98-107); Estimated GFR 75; Glucose 108 mg/dL (83-110); Magnesium 1.8 mg/dL (1.6-2.6); Potassium 4.1 mmol/L (3.5-5.1); Sodium 133 mmol/L (136-145)
[2023-07-15] MEDS: Amiodarone 200 MG TAB PO SCH ×2 (08:44→21:04)
[2023-07-15] MEDS: Enoxaparin 120 MG/0.8 ML SYRINGE SC SCH ×2 (08:45→21:05)
[2023-07-15] MEDS: Metoprolol Tartrate 50 MG TAB PO SCH ×2 (08:45→21:04)
[2023-07-15] MEDS: Pantoprazole 40 MG VIAL IVP SCH (08:56)
[2023-07-15] MEDS: metroNIDAZOLE 500 MG TAB PO SCH ×2 (14:47→21:04)
[2023-07-15] MEDS ORDERED: LevoFLOXacin 750 MG TAB PO SCH (17:00)
[2023-07-15] MEDS: Senokot S 8.6-50 MG TAB PO PRN (17:35)
[2023-07-15] MEDS: Atorvastatin Calcium 40 MG TAB PO SCH (21:04)
[2023-07-16] MEDS: metroNIDAZOLE 500 MG TAB PO SCH (06:20)
[2023-07-16] MEDS: Amiodarone 200 MG TAB PO SCH (08:33)
[2023-07-16] MEDS: Metoprolol Tartrate 50 MG TAB PO SCH (08:33)
[2023-07-16] MEDS: Pantoprazole 40 MG VIAL IVP SCH (08:33)
[2023-07-16] MEDS: Enoxaparin 120 MG/0.8 ML SYRINGE SC SCH (08:34)
[2023-07-16 09:38] LABS: Anion Gap 13 mmol/L (10-20); BUN (Urea Nitrogen) 10 mg/dL (8.4-25.7); Calc. Creatinine Clearance 76 mL/min (70-130); Calcium 8.6 mg/dL (7.8-10.44); Carbon Dioxide 21 mmol/L (23-31); Chloride 104 mmol/L (98-107); Estimated GFR 60; Glucose 166 mg/dL (83-110); Potassium 3.8 mmol/L (3.5-5.1); Sodium 134 mmol/L (136-145)
[2023-07-16 13:06] VITALS: BP 124/88; TEMP 97.7
== END 2023-07-16 13:12 | disposition home or self-care (01) | DRG 392 ==
LOC: ERS 11:28 → T4-B 13:51
PROVIDERS: ADMIT Student in an Organized Health Care Education/Training Program; ATTEND Internal Medicine
DX: K57.20 Diverticulitis of large intestine with perforation and abscess without bleeding (principal); N17.9 Acute kidney failure, unspecified; I48.91 Unspecified atrial fibrillation; I10 Essential (primary) hypertension; K21.9 Gastro-esophageal reflux disease without esophagitis; N40.0 Benign prostatic hyperplasia without lower urinary tract symptoms; E78.5 Hyperlipidemia, unspecified; Z96.651 Presence of right artificial knee joint; K80.20 Calculus of gallbladder without cholecystitis without obstruction; Z96.642 Presence of left artificial hip joint; E66.9 Obesity, unspecified; Z68.33 Body mass index [BMI] 33.0-33.9, adult; Z79.899 Other long term (current) drug therapy; Z79.01 Long term (current) use of anticoagulants; Z98.890 Other specified postprocedural states; Z95.0 Presence of cardiac pacemaker
CPT/HCPCS: 36415; 74022; 76705; 80048; 83605; 83735; 85025; 87040; 96365; 96375; C9113; J0744; J1650; J1956; J2270; J2405; J2543; J7050

== ENCOUNTER 2023-08-20 08:30 | Observation (INO) | payer MEDICARE, BC ==
[2023-08-13 12:16] VITALS: BMI 33.3
[2023-08-20] MEDS ORDERED: LevoFLOXacin 500 mg/D5W 100 ML BAG ONE (08:58)
[2023-08-20] MEDS ORDERED: fentaNYL 50 mcg/mL 1 mL Vial ONE (11:35)
[2023-08-20] MEDS ORDERED: PROPOFOL 200 MG/20 ML VIAL ONE (12:00)
[2023-08-20] MEDS ORDERED: Lidocaine 1% PF 5 ML VIAL ONE (12:00)
[2023-08-20] MEDS ORDERED: Acetaminophen 500 MG TAB PO PRN (12:52)
[2023-08-20] MEDS ORDERED: Mag-Al 1200 mg/1200 mg/30 ML UDCUP PO PRN (12:52)
[2023-08-20] MEDS ORDERED: Ondansetron PF 4 MG/2 ML Vial IVP PRN (12:52)
[2023-08-20] MEDS ORDERED: diphenhydrAMINE 25 MG CAP PO PRN (12:52)
[2023-08-20] MEDS ORDERED: hydrALAZINE 20 MG/ML VIAL SLOW IVP PRN (12:52)
[2023-08-20] MEDS ORDERED: Phenazopyridine HCl 95 MG TAB PO PRN (12:52)
[2023-08-20] MEDS ORDERED: Bisacodyl 10 MG SUPP PR PRN (12:52)
[2023-08-20] MEDS ORDERED: Potassium Chloride 20 MEQ TAB PO PRN (12:55)
[2023-08-20] MEDS ORDERED: Atorvastatin Calcium 40 MG TAB PO SCH (21:00)
[2023-08-20] MEDS: Trospium 20 MG TAB PO SCH (22:01)
[2023-08-20] MEDS: Docusate 100 MG CAP PO SCH (22:02)
[2023-08-20] MEDS: Metoprolol Tartrate 50 MG TAB PO SCH (22:02)
[2023-08-21 05:37] LABS: Anion Gap 11 mmol/L (10-20); BUN (Urea Nitrogen) 13 mg/dL (8.4-25.7); Calc. Creatinine Clearance 85 mL/min (70-130); Calcium 8.6 mg/dL (7.8-10.44); Carbon Dioxide 27 mmol/L (23-31); Chloride 102 mmol/L (98-107); Estimated GFR 70; Glucose 129 mg/dL (83-110); Sodium 136 mmol/L (136-145)
[2023-08-21] MEDS ORDERED: LevoFLOXacin 500 mg/D5W 500 MG in Premix Bag 1 BAG IVPB SCH (07:00)
[2023-08-21] MEDS ORDERED: Amiodarone 200 MG TAB PO SCH (09:00)
[2023-08-21] MEDS ORDERED: Furosemide 40 MG TAB PO SCH (09:00)
[2023-08-21] MEDS: Docusate 100 MG CAP PO SCH (09:49)
[2023-08-21] MEDS: Metoprolol Tartrate 50 MG TAB PO SCH (09:49)
[2023-08-21] MEDS: Trospium 20 MG TAB PO SCH (09:49)
[2023-08-21 12:50] VITALS: BP 113/69; TEMP 97.6
[2023-08-23] MEDS ORDERED: FLU VACC QS2023(65UP)/MF59C/PF 60 MCG/0.5 ML SYRINGE IM ONE (09:00)
== END 2023-08-21 14:57 | disposition home or self-care (01) ==
LOC: SDC 08:30 → INTOOBSV 12:52 → ERHOLD 12:52 → SJJU 15:24
PROVIDERS: ADMIT Urology; ATTEND Urology
PROC: 0VB00ZZ Excision of Prostate, Open Approach (ICD-10-PCS; principal; 2023-08-20)
DX: N40.1 Benign prostatic hyperplasia with lower urinary tract symptoms (principal); N39.41 Urge incontinence; G45.9 Transient cerebral ischemic attack, unspecified; R39.14 Feeling of incomplete bladder emptying; N52.01 Erectile dysfunction due to arterial insufficiency; I25.10 Atherosclerotic heart disease of native coronary artery without angina pectoris; E78.00 Pure hypercholesterolemia, unspecified; K21.9 Gastro-esophageal reflux disease without esophagitis; G47.33 Obstructive sleep apnea (adult) (pediatric); Z87.891 Personal history of nicotine dependence; Z79.01 Long term (current) use of anticoagulants; Z79.899 Other long term (current) drug therapy; Z96.651 Presence of right artificial knee joint; Z96.642 Presence of left artificial hip joint
CPT/HCPCS: 52630; 71045; 80048; J3010; 36415; 88305; J1956; J2704

== ENCOUNTER 2023-10-21 06:16 | Day surgery (SDC) | payer MEDICARE, BC ==
[2023-10-20 10:51] VITALS: BMI 35.7
[2023-10-21] MEDS ORDERED: Lidocaine 1% PF 5 ML VIAL ONE ×2 (08:44→08:54)
[2023-10-21] MEDS ORDERED: PROPOFOL 20 ML ONE ×2 (08:44→09:06)
[2023-10-21] MEDS ORDERED: PHENYLEPHRINE-NS 100 MCG/ML 10 ML SYRINGE ONE ×2 (08:54→09:07)
[2023-10-21] MEDS ORDERED: ePHEDrine Sulfate 50 MG/10 ML VIAL ONE (08:54)
[2023-10-21] MEDS ORDERED: PROPOFOL 200 MG/20 ML VIAL ONE (08:54)
== END 2023-10-21 10:10 | disposition home or self-care (01) ==
LOC: SDC 06:16
PROVIDERS: ATTEND Internal Medicine Gastroenterology
PROC: 0DBN8ZZ Excision of Sigmoid Colon, Via Natural or Artificial Opening Endoscopic (ICD-10-PCS; principal; 2023-10-21)
DX: Z12.11 Encounter for screening for malignant neoplasm of colon (principal); D12.5 Benign neoplasm of sigmoid colon; K57.30 Diverticulosis of large intestine without perforation or abscess without bleeding; I10 Essential (primary) hypertension; I48.91 Unspecified atrial fibrillation; Z86.010 Personal history of colon polyps; Z80.0 Family history of malignant neoplasm of digestive organs; Z96.659 Presence of unspecified artificial knee joint; Z96.642 Presence of left artificial hip joint; Z79.01 Long term (current) use of anticoagulants; Z79.899 Other long term (current) drug therapy
CPT/HCPCS: 88305; J2704